=== PATIENT | male | born 1995 | race Caucasian/White ===

== ENCOUNTER 2020-05-07 20:03 | Emergency (ER) | payer SELFPAY ==
[2020-05-07 20:06] VITALS: BP 145/81; PULSE 91; RESP 14; TEMP 37.3; O2SAT 98; BMI 23.0
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
[2020-05-07 21:14] VITALS: PULSE 94; O2SAT 98
[2020-05-07 21:15] VITALS: BP 126/59; PULSE 94; O2SAT 97
[2020-05-07 21:50] VITALS: BP 140/66; PULSE 73; RESP 16; O2SAT 96
== END 2020-05-07 22:00 | disposition home or self-care (01) ==
PROVIDERS: Emergency Provider Emergency Medicine
DX: S52.124A Nondisplaced fracture of head of right radius, initial encounter for closed fracture (principal); V29.9XXA Motorcycle rider (driver) (passenger) injured in unspecified traffic accident, initial encounter
CPT/HCPCS: 73080; 99283